=== PATIENT | female | born 1940 | race Caucasian/White ===

== ENCOUNTER 2017-01-23 07:40 | Day surgery (SDC) | payer MEDICARE, BC ==
[2017-01-23] MEDS ORDERED: LACTATED RINGERS 1,000 ML IV ONE ×2 (08:06→10:14)
[2017-01-23] MEDS ORDERED: fentaNYL 100 MCG/2 ML VIAL IVP ONE (09:28)
[2017-01-23] MEDS ORDERED: MIDAZOLAM 2 MG/2 ML VIAL IVP ONE (09:28)
[2017-01-23 11:15] VITALS: BP 119/64
== END 2017-01-23 07:41 | disposition home or self-care (01) ==
LOC: SDS 07:40
PROVIDERS: ATTEND Surgery
PROC: 0DBL8ZX Excision of Transverse Colon, Via Natural or Artificial Opening Endoscopic, Diagnostic (ICD-10-PCS; principal; 2017-01-23 08:45)
DX: Z12.11 Encounter for screening for malignant neoplasm of colon (principal); D12.3 Benign neoplasm of transverse colon; K64.8 Other hemorrhoids
CPT/HCPCS: 45380; J7120; 88305

== ENCOUNTER 2020-10-12 09:22 | Outpatient (CLI) | payer MEDICARE ==
--- NOTE | 2020-10-12 15:06 | MRI Report ---
PROCEDURE: Lumbar Spine W/O INDICATIONS: Muscle weakness TECHNIQUE: Noncontrast sagittal T1 spin echo and T2 fast echo, sagittal STIR, axial T1 and T2 fast spin echo thr ough the lumbar spine. In cases with scoliosis, additional coronal T2 fast spin echo may be performe d. COMPARISON: None. FINDINGS: Image quality: Excellent. Alignment and Curvature: Retrolisthesis of L2 on L3 measuring 3-4 mm. Dextroscoliosis centered at L3- L4. Otherwise normal alignment. Vertebral body heights maintained. Bone Marrow: No suspicious focal marrow signal abnormality. Discogenic marrow edema at the opposing L 1-L2, L3-L4, and L5-S1 endplates. Periarticular bone marrow and soft tissue edema in association face t osteoarthropathy, most notable on the left at the L3-L4 and L4-L5 levels. Spinal Cord: Conus medullaris terminates at the normal level. Visualized cord demonstrates normal s ignal and size. Regional Soft Tissues: Prevertebral and paraspinous soft tissues otherwise normal. The included unenh anced retroperitoneal visceral structures demonstrate no acute finding. T12-L1: No spinal canal or neural foraminal stenosis. L1-L2: Posterior disc osteophyte complex flattens the ventral thecal sac with mild displacement of the descending L2 nerve roots. Foraminal components of the disc bulge and facet hypertrophy combine to produce mild neural foraminal narrowing on the right. L2-L3: Retrolisthesis of L2 on L3 combines with diffuse disc bulge and posterior osteophytic ridgi ng of the endplates to flatten the ventral thecal sac and mildly displaces the descending L3 nerve ro ots. There is mild bilateral neural foraminal narrowing due to buckling of the ligamentum flavum, fac et hypertrophy, and foraminal components of the diffuse disc bulge. L3-L4: Severe spinal canal stenosis due to accommodation of diffuse disc bulge, superimposed broad- based posterior disc protrusion, buckling of the ligamentum flavum, and bulky facet hypertrophy. Mode rate left and mild right neural foraminal stenosis due to these factors. Small facet effusions with s ubchondral cystic change. L4-L5: Diffuse disc bulge and a superimposed broad-based posterior disc protrusion flattens the shahzad tral thecal sac with mild mass effect on the descending L5 nerve roots. Moderate neural foraminal deepak rowing due to foraminal components of the disc bulge and neural foraminal height loss with contributi on from bulky facet hypertrophy. Small facet effusions with subchondral cystic change. L5-S1: Diffuse disc bulge without mass effect upon the S1 nerve roots. No neural foraminal narrowin g. IMPRESSION: Multilevel multifactorial degenerative changes, worst at L3-L4 there is severe spinal canal stenosis and moderate neural foraminal narrowing on the left. Bone marrow edema associated with facet arthropathy at L3-L4 and L4-L5, left greater than right, a po tential source of radicular axial back pain. Marrow edema along the endplates at multiple levels as discussed above, an additional potential sourc e of nonradicular axial back pain. Reviewed by: Gareth Santos MD on 10/12/2020 3:05 PM PDT Approved by: Gareth Santos MD on 10/12/2020 3:05 PM PDT Station ID: [id number]
== END 2020-10-12 09:23 | disposition home or self-care (01) ==
LOC: DI 09:22
PROVIDERS: ATTEND Family Medicine
DX: M62.81 Muscle weakness (generalized) (principal); M47.816 Spondylosis without myelopathy or radiculopathy, lumbar region; M48.061 Spinal stenosis, lumbar region without neurogenic claudication

== ENCOUNTER 2020-12-08 12:51 | Outpatient (CLI) | payer MEDICARE ==
--- NOTE | 2020-12-08 14:29 | MRI Report ---
PROCEDURE: Brain W/O INDICATIONS: CERVICAL STENOSIS, ATAXIA TECHNIQUE: Noncontrast axial T1 spin echo, axial T2 fast spin echo, sagittal and axial FLAIR, coronal T2 fast sp in echo, axial gradient echo, axial diffusion and ADC through the brain. COMPARISON: None. FINDINGS: Image quality: Excellent. CSF Spaces: Basal cisterns are patent. No extra-axial fluid collections. Ventricles are normal in size and shape. Brain: Advanced global cerebral volume loss and mild chronic microvascular ischemic changes. No intr acranial masses or hemorrhage. Mendez/white matter interface is normal. Brainstem appears normal. Di ffusion-weighted images demonstrate no acute ischemic insult. No chronic ischemic insults. Normal i ntravascular flow voids are present. Skull and face: Calvarium has normal marrow signal. Orbits appear normal. Sinuses: Sinuses and mastoids are clear. IMPRESSION: No acute finding. Advanced global cerebral volume loss without local or regional predilection to suggest a specific maura rodegenerative disorder. Mild chronic microvascular ischemic changes. Reviewed by: Gareth Santos MD on 12/08/2020 2:28 PM PDT Approved by: Gareth Santos MD on 12/08/2020 2:28 PM PDT Station ID: [id number]
--- NOTE | 2020-12-08 16:16 | MRI Report ---
PROCEDURE: Cervical Spine W/O INDICATIONS: CERVICAL STENOSIS, ATAXIA TECHNIQUE: Noncontrast sagittal T1 spin echo and T2 fast spin echo, sagittal STIR, foraminal oblique sagittal T2 fast spin echo, and axial gradient echo or T2 fast spin echo through the cervical spine. COMPARISON: None. FINDINGS: Image quality: Excellent. Alignment and Curvature: Normal cervical spine vertebral body height and alignment. Bone Marrow: No suspicious focal marrow signal abnormality or bone marrow edema. Spinal Cord: Visualized spinal cord has normal size and signal. No cerebellar tonsillar herniation. Regional Soft Tissues: Prevertebral and paraspinous soft tissues demonstrate no significant abnormali ty in the absence of IV contrast. C2-C3: No spinal canal or neural foraminal stenosis. C3-C4: No spinal canal stenosis. Facet and uncovertebral hypertrophy contribute to mild bilateral n eural foraminal narrowing. C4-C5: Posterior disc-osteophyte complex flattens the ventral cord slightly. Facet and uncovertebral hypertrophy contribute to moderate-severe neural foraminal narrowing on the left and moderate neural foraminal narrowing on the right. C5-C6: Posterior disc-osteophyte complex in the right paracentral zone and lateral recess flattening the ventral cord (series 15 image 30, for example). Facet and uncovertebral hypertrophy contribute t o [id number] neural foraminal narrowing bilaterally. C6-C7: Posterior disc-osteophyte complex flattens the ventral cord slightly. Facet and uncovertebral hypertrophy contribute to trace bilateral neural foraminal stenosis. C7-T1: No spinal canal or neural foraminal stenosis. IMPRESSION: Mild spinal canal stenosis at C4-C5, C5-C6, and to a lesser degree at C6-C7. Varying degrees of neural foraminal narrowing up to moderate on the right at C4-C5. Correlate for any corresponding radicular symptoms. Reviewed by: Gareth Santos MD on 12/08/2020 4:15 PM PDT Approved by: Gareth Santos MD on 12/08/2020 4:15 PM PDT Station ID: [id number]
== END 2020-12-08 12:52 | disposition home or self-care (01) ==
LOC: DI 12:51
PROVIDERS: ATTEND Neurological Surgery
DX: M47.812 Spondylosis without myelopathy or radiculopathy, cervical region (principal); M48.02 Spinal stenosis, cervical region; R27.0 Ataxia, unspecified; I67.2 Cerebral atherosclerosis